=== PATIENT | male | born 1980 | race Caucasian/White ===

== ENCOUNTER 2019-02-28 15:49 | Emergency (ER) | payer OTHER ==
[~2019-02-28] VITALS: Ht 172.7 cm; Wt 75.0 kg
[~2019-02-28 15:49] MED LIST: FLEXERIL 1010 MG/TAB PO; IBU800 M1 PO; NO HOME MEDICATIONS; NORCO 325 MG-7.1 TAB PO
[2019-02-28] MEDS ORDERED: PRILOSEC 20MG20 MG PO (17:08)
[2019-02-28] MEDS ORDERED: NORCO 325 MG-51 TAB PO (17:09)
[2019-02-28] MEDS ORDERED: ROBAXIN 50500 MG/TAB PO (17:10)
[2019-02-28] MEDS ORDERED: VALIUM 5MG T5 MG/TAB PO (18:37)
[2019-02-28 18:51] VITALS: BP 107/82; PULSE 78
== END 2019-02-28 18:51 | disposition home or self-care (01) ==
LOC: COL.ER 15:49
DX: M54.5 Low back pain (principal); K21.9 Gastro-esophageal reflux disease without esophagitis; F17.210 Nicotine dependence, cigarettes, uncomplicated
CPT/HCPCS: J1885